=== PATIENT | male | born 1985 | race Caucasian/White ===

== ENCOUNTER → 2024-06-15 | Outpatient (CLI) | payer OTHER, SELFPAY ==
--- NOTE | 2024-06-15 15:05 | ECHOCS_ITS ---
Reason For Study: HTN Procedure This was a 2D Doppler, Color Flow transthoracic echocardiogram. The study was technically difficult. Contrast injection was performed. Exam performed in department. Left Ventricle Normal left ventricle. Mild concentric left ventricular hypertrophy. The left ventricular ejection fraction is 60 %. No regional wall motion abnormalities noted. Right Ventricle Normal RV size. Normal systolic function. Atria Normal left atrium. Normal right atrium. Mitral Valve Normal mitral valve. Tricuspid Valve Normal tricuspid valve. Mild tricuspid valve insufficiency. Pulmonary artery systolic pressure is 23 mmHg. Aortic Valve Trisinus/trileaflet aortic valve. Pulmonic Valve Normal pulmonic valve. Great Vessels Normal aortic root. The pulmonary artery is normal size. Normal inferior vena cava. Pericardium/Pleural No pericardial effusion. Medication 22 gauge I.V. with prn adaptor inserted into left arm. Diluted definity 2.5ml given slow IV push to enhance endocardial definition. MMode/2D Measurements & Calculations LVIDd: 5.0 cm IVSd: 1.2 cm Ao root diam: 3.2 cm LVIDs: 2.7 cm LVPWd: 1.4 cm LA dimension: 4.8 cm RVDd: 4.3 cm FS: 46.6 % LAV(MOD-bp): 77.8 ml LA A4 area: 24.6 cm2 RA A4 area: 18.1 cm2 LAV(MOD-bp) Indexed: 32.9 ml/m2 LAV(MOD-sp2): 76.3 ml LAV(MOD-sp4): 71.5 ml TAPSE: 2.5 cm Time Measurements MV dec time: 0.22 sec Doppler Measurements & Calculations MV E max vaibhav: 87.5 cm/sec Lat Peak E' Vaibhav: 15.0 cm/sec Med Peak E' Vaibhav: 11.4 cm/sec MV A max vaibhav: 62.0 cm/sec E/E' lat: 5.8 E/E' med: 7.7 MV E/A: 1.4 MV V2 max: 97.4 cm/sec MV P1/2t max vaibhav: 98.5 cm/sec Ao V2 max: 154.2 cm/sec MV max P.8 mmHg MV P1/2t: 75.2 msec Ao max P.5 mmHg MV V2 mean: 37.6 cm/sec MV dec slope: 383.4 cm/sec2 Ao V2 mean: 104.0 cm/sec MV mean P.77 mmHg MVA(P1/2t): 2.9 cm2 Ao mean P.2 mmHg MV V2 VTI: 28.7 cm Ao V2 VTI: 33.6 cm AV (velocity ratio): 1.1 LV V1 max: 143.9 cm/sec PA V2 max: 88.0 cm/sec TR max vaibhav: 223.7 cm/sec LV V1 max P.3 mmHg TR max P.0 mmHg LV V1 mean P.3 mmHg LV V1 mean: 109.1 cm/sec LV V1 VTI: 37.4 cm ECHO/Echo Complete W/ Contrast Interpretation Summary Normal left ventricle. The left ventricular ejection fraction is 60 %. Mild concentric left ventricular hypertrophy. Mild tricuspid valve insufficiency. Contrast injection was performed. Ordering Physician: Randy Grubbs Referring Physician: Randy Grubbs Performed By: Devyn Wiggins RCS
== END | disposition home or self-care (01) ==
LOC: CVS 15:03
PROVIDERS: PCP Nurse Practitioner Family; Referring Provider Internal Medicine Cardiovascular Disease; Visit Provider Internal Medicine Cardiovascular Disease
DX: I10 Essential (primary) hypertension (principal)
CPT/HCPCS: 93306; Q9957; A4216; C8929

== ENCOUNTER → 2024-08-14 | Outpatient (CLI) | payer OTHER, SELFPAY ==
--- NOTE | 2024-08-14 16:12 | STRESSREP ---
Stress Test Report Exercise myocardial perfusion stress test. 48-year-old man with a history of abnormal EKG Stress protocol: Resting EKG demonstrates sinus bradycardia with a rate of 52 bpm, T wave inversions noted in the inferior lateral leads. Resting blood pressure is 144/88 mmHg. The patient exercised according to the regular [facility] protocol for a total duration of 11 minutes attaining a maximum heart rate of 179 bpm which was 98% of maximum predicted heart rate; the maximum workload was 13.4 metabolic equivalents. At rest there were no ST or T wave changes noted to suggest ischemia and at peak exercise up to 2.[address] depression noted in leads II, III and aVF V4 V5 and V6 which were concerning for ischemia. No clinical angina was noted the test was terminated due to the target heart rate being achieved/fatigue. The peak blood pressure was 174/58 mmHg. Rate-pressure product was 27,000. Myocardial perfusion protocol. 14.7 mCi of technetium 99m sestamibi was injected at rest. The patient exercised according to regular [facility] protocol for total duration of 11 minutes and at peak exercise 44.5 mCi of technetium 99m sestamibi was injected stress images were obtained stress and rest images were reconstructed in comparing the short axis vertical long and horizontal long axis. Gated images were also obtained. Perfusion SPECT analysis: Review of the stress images demonstrate normal uptake of tracer noted in all areas of the myocardium. The resting images similarly demonstrate normal uptake of tracer noted in all areas of the myocardium. No areas of reversibility are noted to suggest ischemia no previous infarct was noted. Gated SPECT analysis: The gated ejection fraction is 66%. Conclusion: Normal exercise myocardial perfusion stress test at a high workload EKG changes concerning for ischemia Preserved ejection fraction.
== END | disposition home or self-care (01) ==
LOC: CVS 06:09
PROVIDERS: PCP Nurse Practitioner Family; Referring Provider Nurse Practitioner Family; Visit Provider Nurse Practitioner Family
DX: R94.31 Abnormal electrocardiogram [ECG] [EKG] (principal); E78.2 Mixed hyperlipidemia; I10 Essential (primary) hypertension
CPT/HCPCS: 78452; 93017; A9500; A4216

== ENCOUNTER → 2024-09-29 | Outpatient (CLI) | payer OTHER, SELFPAY ==
--- NOTE | 2024-09-29 13:10 | CT_ITS ---
STUDY: CT CHEST WITH T WITHOUT CONTRAST REASON FOR EXAM: Male, 39 years old. ABNORMAL STRESS TEST limited chest over read ONLY RADIATION DOSAGE (If Supplied By Facility): CTDIvol = ( 48.67 ) mGy, DLP = ( 2257.57 ) mGycm TECHNIQUE: Transaxial imaging was performed pre and post intravenous administration of 75mL Isovue 370. Individualized dose optimization techniques were used for this CT. COMPARISON: No relevant priors. FINDINGS: CHEST The lungs are normal. There is no demonstrated pleural abnormality. No coronary artery calcification is seen. There are small lymph nodes within the mediastinum, which are normal in size and morphology most compatible with reactive lymph hyperplasia. Normal hilar regions. Normal unenhanced pulmonary arteries. Normal aorta arch and descending thoracic aorta. Normal osseous structures. Small gallstones. Fatty infiltration of the liver. CT/Limited Chest CT Cardiac Only IMPRESSION: No coronary calcification is seen. Small gallstones. Fatty infiltration of the liver. Electronically Signed: Santhosh Núñez MD at 11:55 EST ,
[2024-09-29 13:21] VITALS: BP 138/85; PULSE 71; RESP 16; TEMP 36.1; O2SAT 96; BMI 36.9
[2024-09-29 13:45] VITALS: BP 138/85; PULSE 71
[2024-09-29] MEDS: Nitroglycerin SL (ED/IMG/CATH) 0.4 MG TABLET SL (13:45)
[2024-09-29 13:52] VITALS: BP 130/69; PULSE 65; RESP 16; O2SAT 96
[2024-09-29 13:54] LABS: CREATININE FINGERSTICK 1.1 mg/dL (0.70-1.30); EGFR FINGERSTICK > 60.0000 mL/min (>60)
--- NOTE | 2024-10-01 13:01 | CCTA.WCONT ---
CCTA w/Cont Coronary Arteries Date of Study:: 09/29/24 Abnormal stress test Coronary Calcium Scoring: High-resolution Computed Tomographic imaging of the chest was performed on [09/29/2024], with particular attention paid to the coronary arteries. Intravenous contrast agent was administered per protocol and images reconstructed and displayed. LEFT MAIN CORONARY ARTERY: Arises from the left main coronary artery cusp with no atherosclerotic plaque noted and no stenosis present [] LEFT ANTERIOR DESCENDING CORONARY ARTERY: This arises from the left main coronary artery and courses towards the apex of the ventricle. 3 diagonal vessels are noted with no significant plaquing noted coronary calcium score is 0. [] LEFT CIRCUMFLEX CORONARY ARTERY: Nondominant vessel with no significant atherosclerotic plaquing noted and coronary calcium score of 0 [] RIGHT CORONARY ARTERY: Dominant large right coronary artery arising from the right coronary cusp with no atherosclerotic plaquing present. CORONARY CALCIUM SCORE: No significant atherosclerotic plaquing noted coronary calcium score 0 No angiographically significant stenosis present. []
== END | disposition home or self-care (01) ==
PROVIDERS: PCP Nurse Practitioner Family; Referring Provider Nurse Practitioner Family; Visit Provider Nurse Practitioner Family
DX: R94.39 Abnormal result of other cardiovascular function study (principal); R94.31 Abnormal electrocardiogram [ECG] [EKG]; I10 Essential (primary) hypertension
CPT/HCPCS: 75571; 75574; 76380; Q9967